=== PATIENT | female | born 1955 | race Caucasian/White ===

== ENCOUNTER 2016-07-12 11:16 | Inpatient (IN) | payer BC ==
--- NOTE | ~2016-07-12 | CN ---
Consultation Report [facility] [address] [place]. [address] NAME: SARAH WHITLEY : 55 STATUS : ADM IN PAT#: [id number] AGE: 61 ADM/REG DATE : 07/12/16 MR#: [id number] REPORT SERV DATE: 07/12/16 DICTATED BY: TRAVON DAUGHERTY DATE: 07/12/16 REPORT STATUS : Draft TRANSCRIBED BY: MODL DATE: 07/12/16 CONSULT NOTE DATE OF CONSULTATION: 07/12/2016 CHIEF COMPLAINT: Shortness of breath. HISTORY OF PRESENT ILLNESS: Ms Sarah Whitley is a pleasant 61-year-old white female with past medical history significant for moderate mitral regurg, obstructive sleep apnea with occasional CPAP compliance, and ongoing tobacco dependency, who presents to [facility] [place] with complaints of worsening shortness of breath. It should be noted that Ms Whitley has not been hospitalized recently. Ms Whitley has seen Dr. Keenan in the past for her presumed COPD. She has been placed on inhalers in the past, which she said she is compliant. The patient has smoked up until time of presentation. She states that she has smoked at least 1/2 of a pack of cigarettes a day for the last 30 years. She does have known obstructive sleep apnea. She is occasionally compliant with this therapy, more so recently in light of her recent worsening in her shortness of breath. She describes her exercise tolerance as being fairly limited, only being able to walk 20 or 30 yards before experiencing some degree of shortness of breath. The patient states that she has had worsening shortness of breath over the course of the last three to four weeks. She did see Dr. Prather for these concerns. She was also scheduled to reestablish in our Pulmonary Clinic with Dr. Keenan as well. Unfortunately, her breathing became so much of a concern that she eventually presented to our [facility]. Upon arrival, she was noted to have abnormal heart rate and was determined to be in atrial fibrillation with RVR. Given her shortness of breath as well as coughing, she was also treated for an exacerbation of COPD. She was eventually [facility] workup. She did undergo an echocardiogram which demonstrated a left ventricular ejection fraction of 40%. Severely dilated left atrium and moderately dilated right atrium, more appreciated as well. Mitral valve prolapse with at least moderate mitral regurgitation was noted as well. Of note, the patient has also had some worsening renal function with an elevated creatinine. She is currently under consideration for a transesophageal echocardiogram with possible cardioversion. Pulmonary has been consulted to address her symptoms consistent with an exacerbation of COPD. The patient's main pulmonary complaint is shortness of breath. This is worse on exertion and relieved by rest. She is coughing some, but is producing nonpurulent sputum. She does have some complaints of tightness and wheezing in her chest. She denies frequent exacerbations or recent pneumonias. The patient does have previous known mitral valve prolapse. She currently denies any murmurs or palpitations. She does confirm two-pillow orthopnea. Consultation Report [place] [id number] [facility] [place]. [address] NAME: SARAH WHITLEY : 55 STATUS : ADM IN [facility]#: [id number] AGE: 61 ADM/REG DATE : 07/12/16 MR#: [id number] REPORT SERV DATE: 07/12/16 DICTATED BY: TRAVON DAUGHERTY DATE: 07/12/16 REPORT STATUS : Draft TRANSCRIBED BY: VIET DATE: 07/12/16 In regard to constitutional symptoms, she currently denies fever, chills, nausea, vomiting, chest pain, abdominal pain, or edema. PAST MEDICAL HISTORY: 1. Mitral valve prolapse. 2. Clinical COPD. 3. Ongoing tobacco abuse. 4. Gastroesophageal reflux disease. 5. Atrial fibrillation. 6. Obstructive sleep apnea. PAST SURGICAL HISTORY: 1. Left oophorectomy. 2. Uvulectomy for treatment of her sleep apnea. 3. Bilateral tubal ligation. FAMILY HISTORY: The patient denies family history of lung disease. SOCIAL HISTORY: The patient states she is not . 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 She denies any known exposures to dust, silica, or asbestos. TOBACCO/ALCOHOL: As previously mentioned, the patient smokes approximately half pack a day for a period last 30 years. She denies any recent alcohol or illicit drug use. HOME MEDICATIONS: 1. Albuterol. 2. Diltiazem 30 mg. 3. Esomeprazole 40 mg. 4. Loratadine 10 mg. 5. Spiriva. ALLERGIES: THE PATIENT HAS KNOWN ALLERGY TO PENICILLIN. REVIEW OF SYSTEMS: A complete review of systems was performed with pertinent positives and negatives contained within the body of the HPI. PHYSICAL EXAMINATION: VITAL SIGNS: Blood pressure is 96/51, heart rate is 92, T-max is 98.6, respiratory rate is 20, SpO2 is 95% on 2 L supplemental oxygen. GENERAL: The patient is a pleasant, well-nourished/well-developed female who is not currently exhibiting any signs of acute distress. Skin: Skin with appropriate texture and turgor. No rashes, lesions, or ulcers. Nails are clear without cyanosis or clubbing. HEENT: Head: Skull is normocephalic/atraumatic. Facies symmetric. No masses or lesions. Consultation Report [address] [place]. [address] NAME: SARAH WHITLEY : 55 STATUS : ADM IN [facility]#: [id number] AGE: 61 ADM/REG DATE : 07/12/16 MR#: [id number] REPORT SERV DATE: 07/12/16 DICTATED BY: TRAVON DAUGHERTY DATE: 07/12/16 REPORT STATUS : Draft TRANSCRIBED BY: VIET DATE: 07/12/16 Eyes: Sclera anicteric, conjunctiva pink without exudates. Extra ocular movements intact. Pupils are equal, round, reactive to light. Ears: Auricles and tragus without pain to palpation. Hearing is grossly intact. Nose: Bilateral nasal patency. Sinuses without tenderness upon palpation. Throat: The patient is edentulous in the uppers. Mallampati class III to IV. Lips, oral mucosa, tongue, palate, and pharynx pink and moist without lesions. Uvula rises equally on phonation. Tongue midline without deviation. NECK: Neck supple. Trachea midline. No cervical lymphadenopathy appreciated. THORAX/LUNGS: Thorax is symmetric with equal chest rise. Breath sounds audible through entire field. No rales, wheezes, rhonchi. Crackles appreciated throughout. CARDIOVASCULAR: Regular rate and rhythm. No murmurs, rubs, or gallops. Anterior chest without thrills, heaves, or lifts. ABDOMEN: Soft. Non-distended, non-tender. Active bowel sounds in all four quadrants. No hepatosplenomegaly noted. PERIPHERAL VASCULAR: No edema. No varicosities, stasis changes, open sores, ulcerations, or phlebitis. 2+ pulses in radial and dorsalis pedis. MUSCULOSKELETAL: Full AROM and PROM in all joints. No evidence of erythema, deformity, or crepitus. NEUROLOGIC: CN II - XII grossly intact. Good muscle bulk and tone bilaterally. Strength 5/5 throughout. PSYCHIATRIC: Patient demonstrates good judgment and insight. Pt is A&O x 3. ACCESSORY DATA: Reveals a BUN of 61, creatinine 2.71. Troponins are negative. Chest x-ray reveals lower lobe ground-glass hazy opacities consistent with atelectasis or possible pneumonia. IMPRESSION: 1. Volume overload with pulmonary edema and bilateral pleural effusions. 2. Atrial fibrillation with rapid ventricular response. 3. Moderate mitral regurgitation. 4. Acute exacerbation of chronic obstructive pulmonary disease. 5. Acute kidney injury. 6. Obstructive sleep apnea plus or minus CPAP therapy. 7. Tobacco dependency - complicated. PLAN: 1. At this time, the Renal Service has been consulted to assist with her volume overload in the setting of acute kidney injury and hypotension. 2. In regard to the patient's atrial fibrillation and RVR, she is currently scheduled for a EMILIANO and cardioversion in the morning. We will attempt to optimize her prior to this procedure. 3. In regard to the patient's acute exacerbation of COPD, we will ensure that she is on steroids. We will place her on a full armamentarium of nebulized medications. She will need outpatient followup with pulmonary function testing. 4. In regard to the patient's acute kidney injury, again Nephrology Service is plan to see Consultation Report [address] [place]. [address] NAME: SARAH WHITLEY : 55 STATUS : ADM IN [facility]#: [id number] AGE: 61 ADM/REG DATE : 07/12/16 MR#: [id number] REPORT SERV DATE: 07/12/16 DICTATED BY: TRAVON DAUGHERTY DATE: 07/12/16 REPORT STATUS : Draft TRANSCRIBED BY: MODL DATE: 07/12/16 the patient today. 5. In regard to the patient's obstructive sleep apnea, she likely needs retitration study given the long period of time since her initial testing. 6. In regard to the patient's ongoing tobacco dependency, we have spent greater than 10 minutes counseling the patient in the benefits of smoking cessation. The aforementioned impression and plan has been discussed with Dr. Bonds, who will follow further recommendations. We thank you for this consult and look forward to participating in the care of Ms Whitley. GBS/MODL Travon Daugherty PA-C / [id number] CC: Debra Morin M.D.
--- NOTE | ~2016-07-12 | IDS ---
Interim Discharge Summary [facility] [address] [place]. [address] NAME: TING WHITLEY : 55 STATUS : ADM IN LOCATED WITHIN [facility]#: [id number] AGE: 61 ADM/REG DATE : 07/12/16 MR#: [id number] REPORT SERV DATE: 07/26/16 DICTATED BY: GARRET STANLEY DATE: 07/25/16 REPORT STATUS : Draft TRANSCRIBED BY: MODL DATE: 07/25/16 ADMISSION DATE: 07/12/2016 DISCHARGE DATE: WORKING DIAGNOSES: 1. Severe mitral valve regurgitation, status post minimally-invasive mitral valve repair. 2. Persistent paroxysmal atrial fibrillation, status post Maze and left atrial appendage ligation. 3. Postoperative hypotension. 4. Chronic systolic congestive heart failure, stable. 5. Chronic obstructive pulmonary disease. CONSULTS: 1. Cardiology. 2. Cardiothoracic Surgery. 3. Pulmonology. PROCEDURES: Minimally-invasive mitral valve repair along with Maze and GUILLAUME ligation for persistent paroxysmal atrial fibrillation, postop day #5 today. HOSPITAL COURSE: This is a 61-year-old lady who was initially admitted to the hospital with shortness of breath. Please note that the patient had a pretty lengthy hospital stay thus far and there is an interim discharge summary by Dr. Debra Morin on 07/18/2016. This interim discharge summary covers events happened since July 19, 2016, through July 25, 2016, today. By the time I assumed care of this patient, the patient was simply awaiting surgery for the mitral valve repair as well as maze procedure. The patient underwent above- mentioned procedure on 07/21/2016. The patient did well, however, developed postop hypotension. The patient was monitored in the CVICU until today, when she was just transferred out of the CVICU. The patient otherwise did not have any other complications, and the patient is right on the path for recovery. The patient will now be seen by Physical Therapy for discharge evaluation. Camelia/VIET Garret Stanley MD / [id number] CC: Garret Stanley MD
--- NOTE | ~2016-07-12 | OP ---
Record Of Operation [facility] [address] [place]. [address] NAME: TING WHITLEY : 55 STATUS : DIS IN PAT#: [id number] AGE: 61 ADM/REG DATE : 07/12/16 MR#: [id number] REPORT SERV DATE: 09/15/16 DICTATED BY: ADILSON MIGUEL DATE: 09/15/16 REPORT STATUS : Draft TRANSCRIBED BY: MODL DATE: 09/15/16 DATE OF PROCEDURE: E COMMERCE MERCHANT: Malcolm Miguel. ANESTHESIOLOGIST: Dr. Calos No. PREOPERATIVE DIAGNOSES: 1. Severe mitral regurgitation. 2. Partial flail posterior leaflet. 3. Patent foramen ovale. 4. Persistent atrial fibrillation. 5. Systolic congestive heart failure, acute on chronic. POSTOPERATIVE DIAGNOSES: 1. Severe mitral regurgitation. 2. Partial flail posterior leaflet. 3. Patent foramen ovale. 4. Persistent atrial fibrillation. 5. Systolic congestive heart failure, acute on chronic. OPERATION/PROCEDURE PERFORMED: 1. Right lateral mini thoracotomy. 2. Right femoral venous and arterial cannulation. 3. Extracorporeal circulation. 4. Extensive right and left cryo Maze. 5. Left atrial appendage clip 40 mm. 6. Complex mitral valve repair and triangular resection of P2 with 34 mm posterior annuloplasty band, Tania. 7. Transesophageal echo. COMPLICATIONS: None. POSTOPERATIVE CONDITION: To CVICU, weaned on 5 mcg per kilo per minute of dobutamine. INTRAOPERATIVE FINDINGS: Transesophageal echo showed pre ejection fraction of 40% with trace AI, trace TR, and severe MR with a partial flail of posterior leaflet. Post bypass showed trace AI and mild MR at P2-A2. INTRAOPERATIVE FINDINGS: Flail P2 with fibroelastic degeneration. There was thickened anterior and posterior leaflets. There was calcium in the anulus posteriorly. There was some calcium at the base of P2. The PFO was approximately 1 cm x 1 cm, was closed from the left atrial side using pledgeted 4-0 [place]iver[place]-Donnie sutures. The atrial clip was able to be applied to the transverse sinus using echocardiographic guidance. DETAILS OF MAZE PROCEDURE: All lesions were CryoMaze and this was an extensive left and Record Of Operation [facility] [address] [facility] [place]. [address] NAME: TING WHITLEY : [birth year] STATUS : DIS IN PAT#: [id number] AGE: 61 ADM/REG DATE : 07/12/16 MR#: [id number] REPORT SERV DATE: 09/15/16 DICTATED BY: ADILSON MIGUEL DATE: 09/15/16 REPORT STATUS : Draft TRANSCRIBED BY: VIET DATE: 09/15/16 right-sided CryoMaze, this was a Shields-Maze IV. The lesion set is as follows; 1. SVC to IVC lesion. 2. Two lesions to the right atrial appendage. 3. A 2 o'clock crossing lesion across the tricuspid annulus. 4. Pulmonary vein box lesion. 5. Mitral annular lesion crossing the pulmonary vein box to the mitral anulus. 6. Coronary sinus lesion. This was an epicardial lesion crossing the mitral valve anulus across the coronary sinus. 7. Left atrial appendage clip applied through the transverse sinus. INDICATIONS FOR PROCEDURE: Ms. Whitley is a 61-year-old female with history of severe mitral regurgitation, was admitted to the hospital with congestive heart failure. Cardiac catheterization revealed no significant coronary lesions and she was referred for mitral valve repair, possibly replace PFO closure and maze procedure. Risks, benefits, and alternatives were discussed with the patient including but not limited to, bleeding, infection, stroke, , heart attack, need for future operations. All questions were answered. Her STS risk were discussed with the patient with a mortality risk less than 6%. Total complication rate of less than 20%. Again, all questions were answered. DETAILS OF PROCEDURE: The patient was brought to the operating room, placed supine on the operating room table. After satisfactory induction of general endotracheal anesthesia via double-lumen ET tube, she was prepped and draped in the usual sterile fashion after placing a small bump under her right hemothorax. A percutaneous cannula had been placed by 15- Montenegrin percutaneous cannula, had been placed in the SVC via the jugular vein by the Anesthesia Service. She was prepped and draped in usual sterile fashion. A 6 cm incision was made in the inframammary crease, crossing the anterior axillary line in approximately the 5th intercostal space. Skin and subcutaneous tissues were divided down to the chest wall. The chest was entered in the fourth intercostal space. The wound protector was placed. A minimally invasive retractor was placed. The diaphragmatic retraction stitch was used to pull the diaphragm out of the way and attention was then turned to the right femoral region. A small incision was made just above the crease over the femoral artery and vein. Skin and subcutaneous tissues were divided down the inguinal ligament. The inguinal ligament was used to find the femoral sheath. The femoral sheath was entered. The artery and vein were circumferentially dissected out. Systemic heparinization was achieved. Pursestrings were placed on the artery and vein, and using modified Seldinger technique, arteries and veins were cannulated with echocardiographic guidance. Cardiopulmonary bypass was initiated after documentation of an adequate ACT. Pericardium was then opened. Pericardial stay sutures were placed. Antegrade root vent cardioplegia tack was placed and cross-clamp was brought in transthoracic and the aorta was cross clamped. The heart was arrested with cold antegrade cardioplegia. The left atrial appendage clip was placed after visualizing the left atrial appendage through the transverse sinus. A 40 mm clip was able to be placed over the appendage and then the appendage clip was applied. Sondergaard's groove was developed. The left atriotomy was performed, enlarged with scissors. A retractor was placed and the PFO was visualized. The PFO was closed using pledgeted 4-0 Niverville-Donnie sutures and the left atrial appendage clip and the opening of the left atrial appendage was investigated, was felt to be closed. The Maze lesions were then performed as mentioned in the findings. All lesions were performed for 2 minutes at minus 60 degrees. Record Of Operation [facility] [address] [facility] [place]. [address] NAME: TING WHITLEY : 55 STATUS : DIS IN PAT#: [id number] AGE: 61 ADM/REG DATE : 07/12/16 MR#: [id number] REPORT SERV DATE: 09/15/16 DICTATED BY: ADILSON MIGUEL DATE: 09/15/16 REPORT STATUS : Draft TRANSCRIBED BY: MODL DATE: 09/15/16 Once this was done, attention was turned to the mitral valve. There was a flail segment of P2 and the valve was sized to a 34 mm band. Posterior annuloplasty sutures were placed and then a triangular resection was performed. The triangular resection was performed between good cords. The flail segment was excised. The resection was closed using 5-0 Niverville-Donnie sutures. Annuloplasty sutures were placed through the sewing ring of the annuloplasty band. The annuloplasty band was lowered into position. The valve was interrogated, felt to be minimal leakage, and left atrium was closed. A Cordon was placed across the valve as a vent and left atrium was closed in two layers. The ventricular pacing wires were placed during maneuvers were performed and the cross-clamp was removed. The patient returned to normal sinus rhythm, was able to be weaned from cardiopulmonary bypass without incident, on 5 mcg per kilo per minute of dobutamine. The transesophageal echo showed no residual PFO with trace AI and extremely mild central leak. The protamine was administered. Hemostasis was obtained. The patient was decannulated. Pursestring sutures were tied down in the femoral vein. Femoral artery was repaired using interrupted 6-0 Prolene. The Tisseel was applied and the femoral incision was closed using 0 Vicryl, 2-0 Vicryl, 4-0 Monocryl. Dry sterile dressings were placed on this. A 24-Montenegrin Yordan was placed in the right pleural space. A 24-Montenegrin Yordan was placed in the pericardial space. Pericardium was loosely closed using interrupted 2-0 Vicryl. Pacing wires were exteriorized and the diaphragmatic suture was removed. The incision was then closed after hemostasis was obtained. The thoracotomy incision was closed using #2 Vicryl. The latissimus layer was closed using running #1 StrataFix. Subcutaneous tissues closed using running #1 StrataFix. The skin was closed using 2-0 Quill. All stab incisions were closed with glue, cross-clamp, and cardiotomy sucker. Incisions which were slightly larger were closed using interrupted 4-0 Vicryl and glue. Dry sterile dressing was applied. She was transferred to the CVICU in critical, stable condition. C/MODL Adilson Miguel MD / [id number] CC: MD Boby Acevedo M.D.
--- NOTE | ~2016-07-12 | TEE ---
Transesophageal Echocardiogram [facility] [address] [facility] [place]. [address] NAME: TING WHITLEY : 55 STATUS : ADM IN [facility]#: [id number] AGE: 61 ADM/REG DATE : 07/12/16 MR#: [id number] REPORT SERV DATE: 07/13/16 DICTATED BY: DATE: REPORT STATUS : Draft TRANSCRIBED BY: MODL DATE: 07/13/16 CHIEF COMPLAINT/REASON FOR STUDY: Mitral valve regurgitation and atrial fibrillation. PROCEDURE: After obtaining written informed consent, which is documented on the medical record, Anesthesia administered IV propofol to achieve adequate conscious sedation. The transesophageal probe was easily inserted without complications. Saline 2D echocardiographic images were obtained including color and spectral doppler assessment. CHAMBERS: 1. The left ventricle appeared mildly dilated with normal wall thickness. The left ventricular systolic function was moderately depressed with a calculated ejection fraction of 40% via Almanza method. 2. The right ventricle appeared mildly dilated with mildly decreased systolic function. 3. The left atrium was markedly dilated in size. 4. The right atrium was dilated in size. 5. The left atrial appendage was interrogated at multiple levels and depths. There was no evidence of left atrial appendage thrombus. Doppler velocities within the left atrial appendage measured 20 cm/sec. 6. The mitral valve was abnormally thickened, consistent with myxomatous degeneration with a severe mitral valve prolapse of P1 and P2 leaflets with associated torn chordae tendineae. There is severe eccentric anteriorly directed mitral regurgitation, Ifeoma classification II, seen with color and Doppler assessment. 7. The tricuspid valve was normal with preserved leaflet motion without significant tricuspid valvular regurgitation seen via color Doppler assessment. 8. The aortic valve was normal and trileaflet without evidence of significant stenosis or regurgitation seen with color Doppler assessment. 9. The pulmonary valve was well visualized and normal. There was no evidence of significant pulmonary valvular regurgitation. 10.The aorta was normal with mild atherosclerotic plaque visualized. 11.There was no significant pericardial effusion. 12.There was a large left-sided pleural effusion visualized. 13.The interatrial septum was aneurysmal and deviated towards the right. There was color flow evidence of left to right shunt probably via patent foramen ovale. However, this was attempted to be confirmed with saline and observation of right to left color flow could not be visualized. 14.The right and left upper pulmonary veins were interrogated, and there was evidence of pulmonary vein flow reversal. IMPRESSION: 1. Moderately decreased left ventricular systolic function with calculated ejection fraction of 40%. 2. Severe mitral valve prolapse with myxomatous mitral valve leaflets and associated torn chords and severe eccentric mitral valvular regurgitation, Ifeoma classification II. 3. 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 4. Large pleural effusion. Transesophageal Echocardiogram [address] [address] NAME: TING WHITLEY : 55 STATUS : ADM IN [facility]#: [id number] AGE: 61 ADM/REG DATE : 07/12/16 MR#: [id number] REPORT SERV DATE: 07/13/16 DICTATED BY: DATE: REPORT STATUS : Draft TRANSCRIBED BY: VIET DATE: 07/13/16 [facility]/VIET Suyapa Cardoso M.D. / [id number] CC: Debra Morin M.D.
--- NOTE | ~2016-07-12 | PUL ---
[address] [address] NAME: TING WHITLEY : 55 STATUS : ADM IN [facility]#: [id number] AGE: 61 ADM/REG DATE : 07/12/16 MR#: [id number] REPORT SERV DATE: 07/25/16 DICTATED BY: MARYELLEN JUSTICE DATE: 07/24/16 REPORT STATUS : Draft TRANSCRIBED BY: MODL DATE: 07/24/16 PULMONARY FUNCTION TEST PROCEDURE PERFORMED: Overnight oximetry on supplemental oxygen. The patient had slightly over 5 hours of recorded time on 2 L/minute and had no significant oxygen desaturation. IMPRESSION: Successful correction of nocturnal hypoxemia with supplemental oxygen. HOLLIE/VIET Maryellen Justice M.D. / [id number] CC: MD JENA Pedersen HAK SOK
--- NOTE | ~2016-07-12 | CN ---
Consultation Report [facility] [address] [place]. [address] NAME: TING WHITLEY : 55 STATUS : ADM IN [facility]#: [id number] AGE: 61 ADM/REG DATE : 07/12/16 MR#: [id number] REPORT SERV DATE: 07/13/16 DICTATED BY: DATE: REPORT STATUS : Draft TRANSCRIBED BY: MODL DATE: 07/12/16 DATE OF CONSULTATION: 07/12/2016 REASON FOR CONSULTATION: Acute kidney injury. HISTORY OF PRESENT ILLNESS: Ms Whitley is a 61-year-old white female who denies any history of kidney disease in the past. She went to a [facility] with shortness of breath. Since being there, she has been diuresed. She was found to have atrial fibrillation with RVR and placed on Cardizem drip, amiodarone. Creatinine has gone from 0.8 to 1.96 to 2.75. Today, we have been asked to see her in consultation. She has been transferred here to [facility] for EMILIANO cardioversion and heart catheterization. She stated her shortness of breath had been increasing for one month with occasional chest pressure. She has been urinating some. She has been on Lasix since her presentation. Chest x-ray shows pleural effusions and some pulmonary edema. Unfortunately, her blood pressures are in the 80s to 90s at times. PAST MEDICAL HISTORY: COPD, reflux, atrial fibrillation, obstructive sleep apnea. SOCIAL HISTORY: Lives with daughter. Smokes. No alcohol or illicit drug use. FAMILY MEDICAL HISTORY: No kidney disease. ALLERGIES: TO PENICILLIN AND CODEINE. MEDICATIONS: Amiodarone, aspirin, doxycycline, fluticasone, loratadine, Solu-Medrol, Protonix, and tiotropium. REVIEW OF SYSTEMS: 12-point review of systems obtained and negative with the exception of that in HPI. PHYSICAL EXAMINATION: VITAL SIGNS: Temp 97.5, blood pressure 96/51, pulse 92, respiratory rate 20, O2 saturation 95% on 3 L. GENERAL: This is an ill-appearing white female, who is awake, alert, and oriented, answers questions appropriately. HEENT: Normocephalic and atraumatic. Conjunctivae clear. Sclerae anicteric. Pupils are equal and round. Oral mucosa is moist. NECK: Supple, thick. I do not see neck vein distention. RESPIRATIONS: Even, and she has rhonchi bilaterally with decreased bilateral bases, right greater than left. HEART: Rate is irregularly irregular. ABDOMEN: Obese, soft, nontender. No CVA tenderness. BACK: Within normal limits. EXTREMITIES: No significant edema, cyanosis, or clubbing. SKIN: Warm, dry, and intact. No unusual rash or skin lesions. Consultation Report [place] [address] [facility] [address] NAME: TING WHITLEY : 55 STATUS : ADM IN [facility]#: [id number] AGE: 61 ADM/REG DATE : 07/12/16 MR#: [id number] REPORT SERV DATE: 07/13/16 DICTATED BY: DATE: REPORT STATUS : Draft TRANSCRIBED BY: VIET DATE: 07/12/16 NEURO: No focal deficits. Mood and affect, pleasant appropriate. PERTINENT LABS AND X-RAYS: Chest x-ray with edema and pleural effusion bilaterally. Sodium 132, potassium 5.2, chloride 94, CO2 of 22, BUN of 61, creatinine of 2.7, magnesium of 2.2, albumin of 3.4. Troponin 0.02. LFTs are unremarkable. WBCs 10, H and H 13 and 42, platelets 351,000. IMPRESSION: 1. Acute kidney injury. 2. Atrial fibrillation. 3. Congestive heart failure. 4. Hypotension. 5. Chronic obstructive pulmonary disease. 6. Obstructive sleep apnea. PLAN: Acute kidney injury in the setting of a normal baseline creatinine. It has gone from 0.8 to 2.75, suspect this is an acute cardiorenal syndrome in the setting of her atrial fibrillation with RVR and hypotension with prerenal component with given blood pressures. We would like to diurese, but blood pressure is in the 80s to 90s today. We will follow I's and O's and labs. Check urine studies. for some blood pressure support, so we can diurese. Plan is for EMILIANO with cardioversion tomorrow and we will follow along with you. Thank you for the consultation. ALLIE OLEKSANDR Valles / [id number] CC: Debra Morin M.D.
--- NOTE | ~2016-07-12 | CN ---
Consultation Report [facility] [address] [place]. [address] NAME: TING WHITLEY : 55 STATUS : ADM IN PAT#: [id number] AGE: 61 ADM/REG DATE : 07/12/16 MR#: [id number] REPORT SERV DATE: 07/14/16 DICTATED BY: FRANCISCO JAVIER CHIANG DATE: 07/13/16 REPORT STATUS : Draft TRANSCRIBED BY: MODL DATE: 07/13/16 CONSULTATION DATE OF CONSULTATION: 07/13/2016 REASONS FOR CONSULTATION: Mitral valve prolapse and regurgitation. HISTORY OF PRESENT ILLNESS: This is a 61-year-old female with history of COPD, chronic atrial fibrillation, obstructive sleep apnea, and ongoing tobacco abuse. She has had progressive shortness of breath over the past month, and presented to the emergency room at [facility] on 07/10/2016. In the emergency room, she was found it to be in atrial fibrillation with rapid ventricular response. Her laboratory data was unremarkable with normal troponin. She was admitted with COPD exacerbation and atrial fibrillation RVR. She was eventually transferred here and underwent echocardiogram on 07/12/2016, which showed left ventricular ejection fraction of 40%, which is down from 60% in May 2016. She also had a severely dilated left atrium with a moderately dilated right atrium and mitral valve prolapse with at least moderate mitral valve regurgitation. The patient was scheduled to undergo EMILIANO and arteriogram today. Arteriogram was held due to kidney function. She is also scheduled to undergo cardioversion for the atrial fibrillation, but this was held due to the fact that she is going to need mitral valve repair versus mitral valve replacement with maze procedure. CT Surgery was consulted for evaluation of the surgery. Currently, the patient is recovering after her transesophageal echocardiogram with no complaints of chest pain or shortness of breath. Her family is at bedside including her daughter and sister. PAST MEDICAL HISTORY: GERD; COPD; atrial fibrillation, not on chronic anticoagulation; and obstructive sleep apnea with noncompliance. PAST SURGICAL HISTORY: Uvulectomy, left oophorectomy, and bilateral tubal ligation. SOCIAL HISTORY: She lives with her daughter. She smoked a half pack per day for over 35 years. Denies any history of alcohol abuse or use of illicit drugs. FAMILY HISTORY: Positive family history of coronary artery disease. She reports two siblings with mitral valve disease. ALLERGIES: SHE IS ALLERGIC TO PENICILLIN AND CODEINE. HOME MEDICATIONS: Albuterol 1 puff inhaled as needed, BC powder 1 packet as needed, Cardizem 15 mg p.o. three times a day, Nexium 40 mg p.o. every morning, Flonase 2 sprays nasally daily, Claritin 10 mg p.o. daily, and Spiriva inhaler every morning. REVIEW OF SYSTEMS: A 10-point review of systems was obtained, and is negative other than HPI. Consultation Report [address] [place]. [address] NAME: TING WHITLEY : 55 STATUS : ADM IN PAT#: [id number] AGE: 61 ADM/REG DATE : 07/12/16 MR#: [id number] REPORT SERV DATE: 07/14/16 DICTATED BY: FRANCISCO JAVIER CHIANG DATE: 07/13/16 REPORT STATUS : Draft TRANSCRIBED BY: VIET DATE: 07/13/16 PHYSICAL EXAMINATION: VITAL SIGNS: From today, temperature 97.7, heart rate 113, atrial fibrillation on telemetry. Blood pressure 99/77, respiratory rate 14, and O2 saturation 93% on 3 L. GENERAL: Ill-appearing female, in no acute distress. PSYCH: Flat affect. Still recovering from sedation. Talkative. NEUROLOGIC: Alert and oriented x3. Pupils are equal, round, and reactive to light and accommodation. She exhibits equal strength in bilateral upper extremities and bilateral lower extremities. HEENT: Head is normocephalic and atraumatic. Sclerae clear. Nose midline with no abnormality. Teeth; she has had the majority of her teeth extracted. She has permanent teeth that appeared to be healthy along the front lower portion of her jaw. NECK: Supple with no thyromegaly or lymphadenopathy. LUNGS: Clear to auscultation bilaterally with normal effort. CARDIAC: S1, S2. She has a systolic murmur. No gallops or rubs. ABDOMEN: Soft, flat, and nontender with active bowel sounds. EXTREMITIES: Free of cyanosis, clubbing, or edema. LABORATORY DATA: White blood cell count of 4.9, hemoglobin 12.7, hematocrit 39.7, and platelets 224. Sodium 133, potassium 4.5, chloride 97, bicarbonate 25, BUN 63, creatinine 1.87, and glucose 203. ASSESSMENT AND PLAN: This is a 61-year-old female with a history of chronic obstructive pulmonary disease and atrial fibrillation, and ongoing tobacco abuse. She has had worsening shortness of breath over the past month, and was found to have mitral valve prolapse with at least moderate mitral regurgitation per transesophageal echocardiogram. She needs mitral valve repair versus replacement plus maze procedure, we are currently awaiting arteriogram to see if she also needs coronary artery bypass grafting. I have calculated her STS risk stratification for the mitral valve replacement alone which include an overall mortality of 2.8%, and morbidity mortality of 27%. I discussed these findings in relation to mitral valve replacement surgery as well as the need for mitral valve repair versus replacement. The patient is agreeable to proceed. We will need to wait for the coronary arteriogram which will be performed tomorrow morning before planning any further intervention. I will get a CT scan of the chest, noncontrast for now due to the history of chronic obstructive pulmonary disease and heavy tobacco abuse. We will see her again tomorrow and review cath films to determine the patient's surgical needs. Thank you for the consultation. Please let us know if we could be of further assistance. PRAFUL/VIET Francisco Javier Chiang NP Consultation Report [address] [address] NAME: TING WHITLEY : 55 STATUS : ADM IN [facility]#: [id number] AGE: 61 ADM/REG DATE : 07/12/16 MR#: [id number] REPORT SERV DATE: 07/14/16 DICTATED BY: FRANCISCO JAVIER CHIANG DATE: 07/13/16 REPORT STATUS : Draft TRANSCRIBED BY: VIET DATE: 07/13/16 / [id number] CC: Debra Morin M.D.
--- NOTE | ~2016-07-12 | IDS ---
Interim Discharge Summary [facility] [address] [place]. [address] NAME: TING WHITLEY : 55 STATUS : ADM IN [facility]#: [id number] AGE: 61 ADM/REG DATE : 07/12/16 MR#: [id number] REPORT SERV DATE: 07/18/16 DICTATED BY: TAYE OMALLEY DATE: 07/18/16 REPORT STATUS : Draft TRANSCRIBED BY: MODL DATE: 07/18/16 ADMISSION DATE: 07/12/2016 DISCHARGE DATE: This is interim discharge summary for days of service provided from 07/13/2016 to 07/18/2016. The patient was transferred from [facility] from the service of Dr. Ramsay on 07/13/2016 to [facility] on 07/13/2016. CURRENT MEDICAL PROBLEMS: The patient's current medical problems: 1. Severe mitral valve regurgitation. 2. 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 3. Severe mitral regurgitation. Needs surgery. 4. Large left-sided pleural effusion. 5. Atrial fibrillation, initially with rapid ventricular response, now rate controlled. 6. Congestive heart failure, chronic systolic dysfunction with ejection fraction of 40%. 7. Chronic obstructive pulmonary disease exacerbation, improved. History of long-term smoking with severe tobacco abuse. 8. Status post coronary arteriography done on 07/13/2016, no significant blockages. 9. Dyspnea, multifactorial secondary to severe mitral regurgitation and pulmonary edema on admission; atrial fibrillation; severe chronic obstructive pulmonary disease, advanced; and congestive heart failure. 10.Constipation, improved. 11.Acute kidney injury, present on admission, resolved. 12.Pulmonary nodule on the CT of the chest, to be followed up with the management psychologist outpatient. CONSULTANTS ON THE CASE: Comb Fixer Dr. Bonds. Supervisor Stage Carpentry Dr. White. Cardiothoracic nurse practitioner of Dr. Tamayo' Dr. Nadeem Perez for mitral valve surgery. Nephrologists, Dr. Frank Oseguera for acute kidney. IMAGING STUDIES: Transesophageal echocardiogram done on 07/13/2016 showed moderately decreased left ventricular systolic function with ejection fraction of 40%. Severe mitral valve prolapse with myxomatous mitral valve leaflets, and with severe eccentric mitral valvular regurgitation. 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 Coronary arteriography which was done on 07/13/2016 did not show any significant coronary artery disease. CT of the chest without contrast done on 07/13/2016 showed cardiomegaly with increased central venous pressure, bilateral pleural effusion, and bibasilar atelectasis. No segmental pneumonia, left upper lobe pulmonary nodule. Surveillance of this following treatment for congestive heart failure is suggested. HISTORY OF PRESENT ILLNESS: Per dictation of Dr. Matthew when the patient was admitted to Interim Discharge Summary [address] [address] NAME: TING WH[place]LEY : 55 STATUS : ADM IN [facility]#: [id number] AGE: 61 ADM/REG DATE : 07/12/16 MR#: [id number] REPORT SERV DATE: 07/18/16 DICTATED BY: TAYE OMALLEY DATE: 07/18/16 REPORT STATUS : Draft TRANSCRIBED BY: VIET DATE: 07/18/16 [facility]. HOSPITAL COURSE: Briefly, this patient was transferred to the [facility] in July. The patient was evaluated by bilingual executive assistant and Cardiothoracic Surgery, and she needs to have surgery for her mitral valve fixation as well as management psychologist was following this patient for optimization of lung status. Her kidney function has improved. For her pulmonary nodule, she has to follow up with management psychologist Dr. Bonds as outpatient for surveillance. This was discussed with the patient. For atrial fibrillation with rapid ventricular response, she was on a drip of Cardizem. Currently, it is discontinued, and she is not anymore on amiodarone drip. My partner will see this patient starting tomorrow morning, Dr. Soler. /VIET Taye Omalley M.D. / [id number] CC: Rayna Thornton MD
--- NOTE | ~2016-07-12 | DS ---
Discharge Summary [facility] [address] [place]. [address] NAME: TING WHITLEY : 55 STATUS : DIS IN PAT#: [id number] AGE: 61 ADM/REG DATE : 07/12/16 MR#: [id number] REPORT SERV DATE: 07/28/16 DICTATED BY: JR. LANTIGUA WILLIAM JOHN DATE: 07/27/16 REPORT STATUS : Draft TRANSCRIBED BY: MODKandis DATE: 07/27/16 ADMISSION DATE: 07/12/2016 DISCHARGE DATE: 07/27/2016 INTERNAL MEDICINE DISCHARGE SUMMARY DISCHARGE DIAGNOSES: Include, 1. Severe mitral regurgitation, status post minimally invasive mitral valve repair. 2. Persistent paroxysmal atrial fibrillation, status post maze with left atrial appendage ligation. 3. Postop hypotension which has resolved. 4. Chronic diastolic heart failure. 5. Chronic obstructive pulmonary disease. 6. Thrombocytopenia. 7. Obesity with a body mass index of 37.3. OPERATIONS PROCEDURES AND TREATMENTS: Include, 1. Transesophageal echocardiogram done 07/13/2016, which showed moderately decreased left ventricular systolic function, calculated ejection fraction of 40%. 2. Severe mitral valve prolapse with myxomatous mitral valve leaflets and associated torn cords and eccentric mitral valvular regurgitation, Ifeoma classification 2. 3. 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 4. Large pleural effusion. 5. Overnight oximetry. 6. CT of the chest done 07/13/2016 which showed cardiomegaly with increased central venous pressure, bilateral pleural effusions, bibasilar atelectasis. 7. Carotid flow study done 07/13/2016 which showed mild heterogeneous atherosclerotic plaque and left internal carotid with minimal stenosis. There is no significant plaque on the right. Vertebrals showed antegrade flow bilaterally. 8. Renal ultrasound done 07/13/2016 was normal. 9. Multiple chest x-rays for chest tube monitoring. Most recent chest x-ray was 07/27/2016 which showed interval removal of right chest tube with no pneumothorax. 10.Transthoracic echocardiogram done 07/12/2016 showed left ventricular contractility, mildly impaired at 40% with severely dilated left atrium, moderately dilated right atrium, mitral valve prolapse with at least moderate mitral regurgitation. 11.Right lateral minithoracotomy with right femoral venous and arterial cannulation, extracorporeal circulation, maze procedure, left atrial appendage ligation mitral valve repair done 07/20/[address] Tamayo. CONSULTING PHYSICIANS: Include, 1. Dr. Tamayo. 2. Dr. Potts of Pulmonary Medicine. 3. Dr. Oseguera of Nephrology. 4. Dr. Prather of Cardiology. DISCHARGE MEDICATIONS: Include, Discharge Summary [facility] [address] [place]. [address] NAME: TING WHITLEY : 55 STATUS : DIS IN PAT#: [id number] AGE: 61 ADM/REG DATE : 07/12/16 MR#: [id number] REPORT SERV DATE: 07/28/16 DICTATED BY: JR. LANTIGUA WILLIAM JOHN DATE: 07/27/16 REPORT STATUS : Draft TRANSCRIBED BY: VIET DATE: 07/27/16 1. Vitamin C 1000 mg orally twice a day. 2. Aspirin 81 mg orally daily. 3. Lipitor 40 mg orally daily. 4. Amiodarone 200 mg orally twice a day. 5. Lovenox 90 mg subcu every 12 hours for five days or until INR greater than 3. 6. Fluticasone nasal spray, two sprays in each nostril daily. 7. Claritin 10 mg orally daily. 8. Nexium 20 mg orally daily. 9. MiraLAX one packet daily. 10.Lyrica 50 mg every eight hours dispensing two-week supply. 11.Spiriva HandiHaler daily. 12.Coumadin 4 mg orally daily. 13.Zinc 220 mg orally daily. 14.DuoNeb nebulized every six hours while awake. 15.Dulera 200/5 two puffs twice a day. 16.Prednisone 10 mg orally twice a day for four days and 7.5 mg orally twice a day for four days, then 5 mg orally twice a day for four days and 5 mg daily for four days. 17.Leisenring 5/325 one to two tablets every six hours as needed. HOSPITAL COURSE: The patient is a 61-year-old female, initially admitted by Dr. Matthew of [facility] for shortness of breath. The patient was admitted with atrial fibrillation, rapid ventricular response, and COPD exacerbation. She was given IV diltiazem drip, Solu-Medrol. BNP was in the mid 500s on admission, creatinine had worsened from 0.9 to 2.75. The patient was seen by Dr. Gaona of Cardiology and recommendation was for transfer to the [facility]. The patient was transferred to the [facility] on 07/12/2016. The patient underwent a EMILIANO which is detailed above showing depressed systolic function as well as severely dilated left atrium and mitral valve regurgitation. She was subsequently seen by Thoracic Surgery in evaluation for a maze procedure, left atrial appendage ligation, and mitral valve repair ensued. In the interim, the patient was seen by Nephrology and her renal function was optimized. Her creatinine had improved to 1 by 07/15/2016. The patient eventually went to surgery on 07/20/2016 and had hypotension following surgery and was transferred to the CV ICU. The patient gradually recovered and was transferred to the floor on 07/23/2016. She underwent a nocturnal desaturation study which showed greater than 5 hours of desaturation to less than 88% qualifying her for nocturnal home oxygen. The patient was started on Coumadin and Lovenox. She will be discharged to home today 07/27/2016 with bedside commode and a wheeled walker. She was dispensed Lovenox 90 mg subcu b.i.d. five-day supply to bridge until INR is greater than 2. We will schedule an INR check on Monday. The patient will follow up with Dr. Prather and Dr. Linares. Highlights of exam at discharge, her right groin wound is well healed. Her right thoracotomy wound is dressed. Her BUN and creatinine are 15 and 0.4. She will have an exertional desaturation studying that will be set up for oxygen if she qualifies. FOLLOWUP ISSUES: 1. Follow up with Dr. Prather in two to four weeks. 2. Follow up with Dr. Linares in one week with CBC, BMP, and INR. 3. INR check on 07/29/2016. 4. For discharge exam and laboratory, please see the daily progress note. Discharge Summary [address] [address] NAME: TING [place]LEY : 55 STATUS : DIS IN PAT#: [id number] AGE: 61 ADM/REG DATE : 07/12/16 MR#: [id number] REPORT SERV DATE: 07/28/16 DICTATED BY: JR. LANTIGUA WILLIAM JOHN DATE: 07/27/16 REPORT STATUS : Draft TRANSCRIBED BY: VIET DATE: 07/27/16 DISCHARGE DIET: Low sodium, cardiac diet. ACTIVITY: As tolerated. This discharge took 45 minutes for the patient encounter, coordination of care, and documentation. YODIT/VIET Dajuan Lantigua Jr, MD / [id number] CC: Dajuan Lantigua Jr, MD SEO, [facility]
[~2016-07-12 11:16] MED LIST: ALBUTEROL5 INH; BC HEADACHE PO; CARD30 PO; CLARIT10 PO; FLONASE NAS; MOBIC7.5 PO; MUCINEX; MULTIPLE VIT PO; NEXIUM40 PO; P10 PO; PROVHFA INH; SPIRIVA INH; ULTRAM50 PO; VIT B 12; VITC500 PO; ZYRTEC ALLGY10 MG PO
[2016-07-12] MEDS ORDERED: B-C POWDER PO (14:23)
[2016-07-12] MEDS ORDERED: NEXIUM20 M1 PO (14:23)
[2016-07-12] MEDS ORDERED: ALBUTEROL5 PO (14:24)
[2016-07-12] MEDS ORDERED: CLARIT10 PO (14:24)
[2016-07-13 02:09] LABS: ASCORBIC ACID (UR NOT ORDER) NEG (NEG); BILIRUBIN, URINE NEGATIVE (NEG); KETONE, URINE NEGATIVE (NEG); LEUKOCYTE ESTERASE(NOT OR NEG (NEG); WBC (NOT ORDERED) (RFLEX) 1 (0-5)
[2016-07-13 05:59] LABS: BASOPHILS 0 %; EOSINOPHILS 0 %; HEMATOCRIT 39.7 % (36.0-48.0); HEMOGLOBIN 12.7 g/dL (12.0-16.0); IMMATURE GRANULOCYTES 0.2 %; IMMATURE GRANULOCYTES ABSOLUTE 0.01 10/3/uL (0.0-0.11); LYMPHOCYTES 3.5 %; LYMPHOCYTES ABSOLUTE 0.17 10/3/uL (0.67-4.30); MANUAL DIFF NO %; MEAN CORPUSCULAR HEMOGLOB 27.3 pg (26.0-34.0); MEAN CORPUSCULAR VOLUME 85.4 fL (80-100); MEAN PLATELET VOLUME 10.3 fL (9.2-13.0); MONOCYTES 2.2 %; MONOCYTES ABSOLUTE 0.11 10/3/uL (0.21-1.20); NEUTROPHILS 94.1 %; PLATELET COUNT 224 10/3/uL (150-400); RBC DISTRIBUTION WIDTH 14.2 % (12.0-16.0); RED CELL COUNT 4.65 10/6/uL (4.0-5.6); WHITE BLOOD CELLS 4.9 10/3/uL (4.5-10.5)
[2016-07-13 06:03] LABS: ALBUMIN 3.4 G/DL (3.5-5.0); BUN (BLOOD UREA NITROGEN) 63 MG/DL (6-23); CALCIUM, SERUM 8.6 MG/DL (8.5-10.4); CHLORIDE, SERUM 97 MMOL/L (96-112); CO2 (CARBON DIOXIDE) 25 MMOL/L (24-34); GLUCOSE, SERUM 203 MG/DL (60-99); POTASSIUM, SERUM 4.5 MMOL/L (3.5-5.3); SODIUM, SERUM 133 MMOL/L (135-148)
[2016-07-13 06:04] LABS: CREATININE 1.87 MG/DL (0.55-1.02); GFR AFRICAN AMERICAN 33 ML/MIN (>=60); GFR NON AFRICAN AMERICAN 29 ML/MIN (>=60); PHOSPHORUS, SERUM 4.9 MG/DL (2.5-4.5)
[2016-07-14 01:54] LABS: BASOPHILS 0 %; EOSINOPHILS 0 %; HEMATOCRIT 40.9 % (36.0-48.0); HEMOGLOBIN 13.1 g/dL (12.0-16.0); IMMATURE GRANULOCYTES 0.3 %; IMMATURE GRANULOCYTES ABSOLUTE 0.02 10/3/uL (0.0-0.11); LYMPHOCYTES ABSOLUTE 0.18 10/3/uL (0.67-4.30); MEAN CORPUSCULAR HEMOGLOB 27.2 pg (26.0-34.0); MEAN CORPUSCULAR VOLUME 84.9 fL (80-100); MEAN PLATELET VOLUME 10.2 fL (9.2-13.0); MONOCYTES 1.2 %; MONOCYTES ABSOLUTE 0.07 10/3/uL (0.21-1.20); NEUTROPHILS 95.5 %; NEUTROPHILS ABSOLUTE 5.75 10/3/uL (2.02-8.40); PLATELET COUNT 220 10/3/uL (150-400); RBC DISTRIBUTION WIDTH 14.3 % (12.0-16.0); RED CELL COUNT 4.82 10/6/uL (4.0-5.6)
[2016-07-14 01:57] LABS: MANUAL DIFF NO %
[2016-07-14 02:15] LABS: ALBUMIN 3.7 G/DL (3.5-5.0); CALCIUM, SERUM 8.7 MG/DL (8.5-10.4); CHLORIDE, SERUM 95 MMOL/L (96-112); CHOL/HDL RATIO(NOT ORDER) 3.8 (0-5); CHOLESTEROL 188 MG/DL (< 200); GFR AFRICAN AMERICAN 40 ML/MIN (>=60); GFR NON AFRICAN AMERICAN 34 ML/MIN (>=60); GLUCOSE, SERUM 221 MG/DL (60-99); HDL CHOLESTEROL 49 MG/DL (> 49); LDL CHOLESTEROL 111 MG/DL (< 130); NON-HDL CHOLESTEROL 139 MG/DL (< 160); PHOSPHORUS, SERUM 4.5 MG/DL (2.5-4.5); SODIUM, SERUM 138 MMOL/L (135-148); TRIGLYCERIDE 143 MG/DL (< 150)
[2016-07-14 02:16] LABS: CO2 (CARBON DIOXIDE) 31 MMOL/L (24-34)
[2016-07-14 02:17] LABS: BUN (BLOOD UREA NITROGEN) 56 MG/DL (6-23)
[2016-07-15 05:57] LABS: BASOPHILS 0 %; EOSINOPHILS 0 %; HEMATOCRIT 38.5 % (36.0-48.0); HEMOGLOBIN 12.1 g/dL (12.0-16.0); IMMATURE GRANULOCYTES 0.1 %; IMMATURE GRANULOCYTES ABSOLUTE 0.01 10/3/uL (0.0-0.11); LYMPHOCYTES 5.5 %; LYMPHOCYTES ABSOLUTE 0.37 10/3/uL (0.67-4.30); MEAN CORPUS HGB CONC 31.4 g/dL (32.0-36.0); MEAN CORPUSCULAR VOLUME 85.9 fL (80-100); MEAN PLATELET VOLUME 9.6 fL (9.2-13.0); NEUTROPHILS 91.4 %; NEUTROPHILS ABSOLUTE 6.13 10/3/uL (2.02-8.40); PLATELET COUNT 195 10/3/uL (150-400); RBC DISTRIBUTION WIDTH 14.4 % (12.0-16.0); RED CELL COUNT 4.48 10/6/uL (4.0-5.6); WHITE BLOOD CELLS 6.7 10/3/uL (4.5-10.5)
[2016-07-15 05:58] LABS: MANUAL DIFF NO %
[2016-07-15 06:05] LABS: CALCIUM, SERUM 8.3 MG/DL (8.5-10.4); CHLORIDE, SERUM 95 MMOL/L (96-112); SODIUM, SERUM 137 MMOL/L (135-148)
[2016-07-15 06:07] LABS: BUN (BLOOD UREA NITROGEN) 40 MG/DL (6-23); CO2 (CARBON DIOXIDE) 38 MMOL/L (24-34); CREATININE 0.99 MG/DL (0.55-1.02); GFR AFRICAN AMERICAN 71 ML/MIN (>=60); GFR NON AFRICAN AMERICAN 62 ML/MIN (>=60); GLUCOSE, SERUM 143 MG/DL (60-99)
[2016-07-16 04:11] LABS: BASOPHILS 0 %; EOSINOPHILS 0 %; HEMOGLOBIN 13.3 g/dL (12.0-16.0); IMMATURE GRANULOCYTES 0.2 %; IMMATURE GRANULOCYTES ABSOLUTE 0.01 10/3/uL (0.0-0.11); LYMPHOCYTES 6.6 %; LYMPHOCYTES ABSOLUTE 0.44 10/3/uL (0.67-4.30); MEAN CORPUS HGB CONC 30.9 g/dL (32.0-36.0); MEAN CORPUSCULAR HEMOGLOB 27.4 pg (26.0-34.0); MEAN PLATELET VOLUME 9.6 fL (9.2-13.0); MONOCYTES 6.2 %; MONOCYTES ABSOLUTE 0.41 10/3/uL (0.21-1.20); PLATELET COUNT 194 10/3/uL (150-400); RBC DISTRIBUTION WIDTH 14.3 % (12.0-16.0); RED CELL COUNT 4.86 10/6/uL (4.0-5.6); WHITE BLOOD CELLS 6.7 10/3/uL (4.5-10.5)
[2016-07-16 04:12] LABS: HEMATOCRIT 43.1 % (36.0-48.0); MANUAL DIFF NO %; MEAN CORPUSCULAR VOLUME 88.7 fL (80-100)
[2016-07-16 04:26] LABS: CALCIUM, SERUM 8.5 MG/DL (8.5-10.4); CHLORIDE, SERUM 89 MMOL/L (96-112); GFR AFRICAN AMERICAN 80 ML/MIN (>=60); GFR NON AFRICAN AMERICAN 69 ML/MIN (>=60); GLUCOSE, SERUM 118 MG/DL (60-99); POTASSIUM, SERUM 3.8 MMOL/L (3.5-5.3); SODIUM, SERUM 138 MMOL/L (135-148)
[2016-07-16 04:27] LABS: BUN (BLOOD UREA NITROGEN) 32 MG/DL (6-23); CO2 (CARBON DIOXIDE) 44 MMOL/L (24-34); PARTIAL THROMBO TIME 62.5 SEC (22.5-37.2)
[2016-07-16 14:21] LABS: ALLENS TEST Pos; BE (BASE EXCESS) 13.1 MEQ/L (0 +/- 2.5); CARBOXYHEMOGLOBIN 1.1 % (0-3); DEVICE NC; HEMOBLOGIN CONTENT 15.3 G/DL (12-16); INSTRUMENT SERIAL # 35151; METHEMOGLOBIN 0.4 % (0-3); O2 CONTENT 19.3 VOL% (18-24); OPERATOR ID 13715; PCO2 (CO2 TENSION) 53 MMHG (35-45); PO2 (O2 TENSION) 57 MMHG (79-93); SAMPLE Arterial; pH 7.48 (7.37-7.43)
[2016-07-17 01:53] LABS: BASOPHILS 0.1 %; BASOPHILS ABSOLUTE 0.01 10/3/uL (0.0-0.16); EOSINOPHILS 0.1 %; EOSINOPHILS ABSOLUTE 0.01 10/3/uL (0.0-0.53); HEMATOCRIT 42.9 % (36.0-48.0); HEMOGLOBIN 13.4 g/dL (12.0-16.0); IMMATURE GRANULOCYTES 0.4 %; IMMATURE GRANULOCYTES ABSOLUTE 0.04 10/3/uL (0.0-0.11); LYMPHOCYTES 7.1 %; LYMPHOCYTES ABSOLUTE 0.67 10/3/uL (0.67-4.30); MEAN CORPUS HGB CONC 31.2 g/dL (32.0-36.0); MEAN CORPUSCULAR HEMOGLOB 27.4 pg (26.0-34.0); MEAN CORPUSCULAR VOLUME 87.7 fL (80-100); MEAN PLATELET VOLUME 9.5 fL (9.2-13.0); MONOCYTES ABSOLUTE 0.66 10/3/uL (0.21-1.20); NEUTROPHILS 85.3 %; NEUTROPHILS ABSOLUTE 8.08 10/3/uL (2.02-8.40); PLATELET COUNT 204 10/3/uL (150-400); RBC DISTRIBUTION WIDTH 14.2 % (12.0-16.0); RED CELL COUNT 4.89 10/6/uL (4.0-5.6)
[2016-07-17 01:54] LABS: MANUAL DIFF NO %; WHITE BLOOD CELLS 9.5 10/3/uL (4.5-10.5)
[2016-07-17 02:05] LABS: ALBUMIN 3.1 G/DL (3.5-5.0); BUN (BLOOD UREA NITROGEN) 32 MG/DL (6-23); CALCIUM, SERUM 8.4 MG/DL (8.5-10.4); CHLORIDE, SERUM 87 MMOL/L (96-112); CREATININE 0.98 MG/DL (0.55-1.02); GFR AFRICAN AMERICAN 72 ML/MIN (>=60); GFR NON AFRICAN AMERICAN 62 ML/MIN (>=60); POTASSIUM, SERUM 3.6 MMOL/L (3.5-5.3); SODIUM, SERUM 136 MMOL/L (135-148)
[2016-07-17 02:10] LABS: CO2 (CARBON DIOXIDE) 44 MMOL/L (24-34); GLUCOSE, SERUM 145 MG/DL (60-99); PHOSPHORUS, SERUM 2.8 MG/DL (2.5-4.5)
[2016-07-18 04:01] LABS: BASOPHILS 0.1 %; BASOPHILS ABSOLUTE 0.01 10/3/uL (0.0-0.16); EOSINOPHILS 0.6 %; EOSINOPHILS ABSOLUTE 0.06 10/3/uL (0.0-0.53); HEMATOCRIT 44.4 % (36.0-48.0); HEMOGLOBIN 13.9 g/dL (12.0-16.0); IMMATURE GRANULOCYTES 0.7 %; IMMATURE GRANULOCYTES ABSOLUTE 0.07 10/3/uL (0.0-0.11); LYMPHOCYTES 16.2 %; LYMPHOCYTES ABSOLUTE 1.53 10/3/uL (0.67-4.30); MEAN CORPUS HGB CONC 31.3 g/dL (32.0-36.0); MEAN CORPUSCULAR HEMOGLOB 27.5 pg (26.0-34.0); MEAN CORPUSCULAR VOLUME 87.7 fL (80-100); MEAN PLATELET VOLUME 9.8 fL (9.2-13.0); MONOCYTES 6.7 %; MONOCYTES ABSOLUTE 0.63 10/3/uL (0.21-1.20); NEUTROPHILS 75.7 %; NEUTROPHILS ABSOLUTE 7.17 10/3/uL (2.02-8.40); PLATELET COUNT 173 10/3/uL (150-400); RBC DISTRIBUTION WIDTH 14.6 % (12.0-16.0); RED CELL COUNT 5.06 10/6/uL (4.0-5.6); WHITE BLOOD CELLS 9.5 10/3/uL (4.5-10.5)
[2016-07-18 04:06] LABS: MANUAL DIFF NO %; PARTIAL THROMBO TIME 66.5 SEC (22.5-37.2)
[2016-07-18 04:15] LABS: ALBUMIN 2.9 G/DL (3.5-5.0); BUN (BLOOD UREA NITROGEN) 29 MG/DL (6-23); CALCIUM, SERUM 8.8 MG/DL (8.5-10.4); CHLORIDE, SERUM 89 MMOL/L (96-112); CREATININE 0.74 MG/DL (0.55-1.02); GFR AFRICAN AMERICAN 101 ML/MIN (>=60); GFR NON AFRICAN AMERICAN 87 ML/MIN (>=60); GLUCOSE, SERUM 127 MG/DL (60-99); POTASSIUM, SERUM 3.4 MMOL/L (3.5-5.3); SODIUM, SERUM 138 MMOL/L (135-148)
[2016-07-18 04:16] LABS: CO2 (CARBON DIOXIDE) 42 MMOL/L (24-34)
[2016-07-19 04:20] LABS: BASOPHILS 0.1 %; BASOPHILS ABSOLUTE 0.01 10/3/uL (0.0-0.16); EOSINOPHILS 1.6 %; EOSINOPHILS ABSOLUTE 0.17 10/3/uL (0.0-0.53); HEMATOCRIT 44.3 % (36.0-48.0); HEMOGLOBIN 13.6 g/dL (12.0-16.0); IMMATURE GRANULOCYTES 0.8 %; IMMATURE GRANULOCYTES ABSOLUTE 0.09 10/3/uL (0.0-0.11); LYMPHOCYTES 15.1 %; LYMPHOCYTES ABSOLUTE 1.61 10/3/uL (0.67-4.30); MEAN CORPUS HGB CONC 30.7 g/dL (32.0-36.0); MEAN CORPUSCULAR HEMOGLOB 27.1 pg (26.0-34.0); MEAN CORPUSCULAR VOLUME 88.2 fL (80-100); MONOCYTES 7.8 %; MONOCYTES ABSOLUTE 0.83 10/3/uL (0.21-1.20); NEUTROPHILS 74.6 %; NEUTROPHILS ABSOLUTE 7.92 10/3/uL (2.02-8.40); PLATELET COUNT 187 10/3/uL (150-400); RBC DISTRIBUTION WIDTH 14.6 % (12.0-16.0); RED CELL COUNT 5.02 10/6/uL (4.0-5.6); WHITE BLOOD CELLS 10.6 10/3/uL (4.5-10.5)
[2016-07-19 04:29] LABS: MANUAL DIFF NO %
[2016-07-19 04:31] LABS: ALBUMIN 2.7 G/DL (3.5-5.0); BUN (BLOOD UREA NITROGEN) 27 MG/DL (6-23); CALCIUM, SERUM 8.6 MG/DL (8.5-10.4); CHLORIDE, SERUM 92 MMOL/L (96-112); CREATININE 0.74 MG/DL (0.55-1.02); GFR AFRICAN AMERICAN 101 ML/MIN (>=60); GFR NON AFRICAN AMERICAN 87 ML/MIN (>=60); GLUCOSE, SERUM 113 MG/DL (60-99); PHOSPHORUS, SERUM 3.9 MG/DL (2.5-4.5); POTASSIUM, SERUM 3.2 MMOL/L (3.5-5.3); SODIUM, SERUM 140 MMOL/L (135-148)
[2016-07-19 04:32] LABS: CO2 (CARBON DIOXIDE) 42 MMOL/L (24-34)
[2016-07-20 02:26] LABS: BASOPHILS 0.1 %; BASOPHILS ABSOLUTE 0.01 10/3/uL (0.0-0.16); HEMATOCRIT 43.9 % (36.0-48.0); HEMOGLOBIN 13.8 g/dL (12.0-16.0); IMMATURE GRANULOCYTES 0.8 %; IMMATURE GRANULOCYTES ABSOLUTE 0.08 10/3/uL (0.0-0.11); LYMPHOCYTES 18.1 %; LYMPHOCYTES ABSOLUTE 1.78 10/3/uL (0.67-4.30); MEAN CORPUS HGB CONC 31.4 g/dL (32.0-36.0); MEAN CORPUSCULAR HEMOGLOB 27.4 pg (26.0-34.0); MEAN CORPUSCULAR VOLUME 87.3 fL (80-100); MEAN PLATELET VOLUME 9.8 fL (9.2-13.0); MONOCYTES ABSOLUTE 0.78 10/3/uL (0.21-1.20); NEUTROPHILS ABSOLUTE 7.06 10/3/uL (2.02-8.40); PLATELET COUNT 180 10/3/uL (150-400); RBC DISTRIBUTION WIDTH 14.7 % (12.0-16.0); RED CELL COUNT 5.03 10/6/uL (4.0-5.6); WHITE BLOOD CELLS 9.8 10/3/uL (4.5-10.5)
[2016-07-20 02:28] LABS: MANUAL DIFF NO %
[2016-07-20 02:32] LABS: INTERNATIONAL NORMAL RATI 1.1 UNITS (-); PROTIME (NOT ORD) 14.4 SEC (12.0-14.5)
[2016-07-20 02:50] LABS: % IRON SAT 23 % (20-50); BUN (BLOOD UREA NITROGEN) 27 MG/DL (6-23); CALCIUM, SERUM 8.7 MG/DL (8.5-10.4); CHLORIDE, SERUM 94 MMOL/L (96-112); CREATININE 0.91 MG/DL (0.55-1.02); DIRECT BILIRUBIN 0.2 MG/DL (0.0-0.4); GFR AFRICAN AMERICAN 79 ML/MIN (>=60); GFR NON AFRICAN AMERICAN 68 ML/MIN (>=60); GLOBULIN 2.9 G/DL (2.5-4.1); GLUCOSE, SERUM 131 MG/DL (60-99); INDIRECT BILIRUBIN(NOT ORDER) 0.7 MG/DL (0.1-0.9); IRON BINDING CAPACITY 326 MCG/DL (225-410); IRON, SERUM 76 MCG/DL (35-150); POTASSIUM, SERUM 3.7 MMOL/L (3.5-5.3); SGOT(AST) 16 U/L (5-40); SGPT(ALT) 13 U/L (5-65); SODIUM, SERUM 141 MMOL/L (135-148); TOTAL BILIRUBIN 0.9 MG/DL (0-1.2); TOTAL PROTEIN 5.9 G/DL (6.0-8.5)
[2016-07-20 02:51] LABS: ALKALINE PHOSPHATASE 53 U/L (45-117); CO2 (CARBON DIOXIDE) 37 MMOL/L (24-34)
[2016-07-20 14:53] LABS: BE (BASE EXCESS) 0.5 MEQ/L (0 +/- 2.5); CARBOXYHEMOGLOBIN 0.7 % (0-3); HCO3 (ACTUAL BICARBONATE) 24.4 MEQ/L (23-27); HEMOBLOGIN CONTENT 13.1 G/DL (12-16); INSTRUMENT SERIAL # 11843; METHEMOGLOBIN 0.5 % (0-3); O2 CONTENT 18.6 VOL% (18-24); PCO2 (CO2 TENSION) 37 MMHG (35-45); PO2 (O2 TENSION) 245 MMHG (79-93); pH 7.44 (7.37-7.43)
[2016-07-20 14:54] LABS: MODE SIMV; OPERATOR ID 35188; SAMPLE Arterial; TIDAL VOLUME 700 ML
[2016-07-20 15:26] LABS: HEMATOCRIT 37.9 % (36.0-48.0); PLATELET COUNT 87 10/3/uL (150-400)
[2016-07-20 15:28] LABS: INTERNATIONAL NORMAL RATI 1.6 UNITS (-); PARTIAL THROMBO TIME 32.6 SEC (22.5-37.2)
[2016-07-20 15:32] LABS: PROTIME (NOT ORD) 19.1 SEC (12.0-14.5)
[2016-07-20 15:57] LABS: BUN (BLOOD UREA NITROGEN) 27 MG/DL (6-23); CALCIUM, SERUM 8.7 MG/DL (8.5-10.4); CHLORIDE, SERUM 104 MMOL/L (96-112); CREATININE 0.85 MG/DL (0.55-1.02); GFR AFRICAN AMERICAN 86 ML/MIN (>=60); GFR NON AFRICAN AMERICAN 74 ML/MIN (>=60); POTASSIUM, SERUM 3.7 MMOL/L (3.5-5.3); SODIUM, SERUM 140 MMOL/L (135-148)
[2016-07-20 15:58] LABS: CO2 (CARBON DIOXIDE) 26 MMOL/L (24-34); GLUCOSE, SERUM 96 MG/DL (60-99)
[2016-07-20 17:17] LABS: FIBRINOGEN 270 MG/DL (230-462)
[2016-07-20 21:02] LABS: HEMATOCRIT 35.5 % (36.0-48.0); HEMOGLOBIN 11.4 g/dL (12.0-16.0)
[2016-07-20 21:14] LABS: CALCIUM, SERUM 8.2 MG/DL (8.5-10.4); CHLORIDE, SERUM 108 MMOL/L (96-112); CO2 (CARBON DIOXIDE) 28 MMOL/L (24-34); CREATININE 0.87 MG/DL (0.55-1.02); GFR AFRICAN AMERICAN 83 ML/MIN (>=60); GFR NON AFRICAN AMERICAN 72 ML/MIN (>=60); POTASSIUM, SERUM 4.3 MMOL/L (3.5-5.3); SODIUM, SERUM 143 MMOL/L (135-148)
[2016-07-20 21:15] LABS: BUN (BLOOD UREA NITROGEN) 35 MG/DL (6-23); GLUCOSE, SERUM 134 MG/DL (60-99)
[2016-07-20 21:23] LABS: BE (BASE EXCESS) -1.7 MEQ/L (0 +/- 2.5); CARBOXYHEMOGLOBIN 0.6 % (0-3); DEVICE NC; HCO3 (ACTUAL BICARBONATE) 24.1 MEQ/L (23-27); HEMOBLOGIN CONTENT 12.4 G/DL (12-16); INSTRUMENT SERIAL # 11843; METHEMOGLOBIN 0.4 % (0-3); O2 CONTENT 16.7 VOL% (18-24); OPERATOR ID 16469; PCO2 (CO2 TENSION) 45 MMHG (35-45); PO2 (O2 TENSION) 97 MMHG (79-93); SAMPLE Arterial; pH 7.35 (7.37-7.43)
[2016-07-21 03:54] LABS: BASOPHILS 0.1 %; BASOPHILS ABSOLUTE 0.01 10/3/uL (0.0-0.16); EOSINOPHILS 0 %; HEMATOCRIT 32.8 % (36.0-48.0); HEMOGLOBIN 10.4 g/dL (12.0-16.0); IMMATURE GRANULOCYTES 0.5 %; IMMATURE GRANULOCYTES ABSOLUTE 0.08 10/3/uL (0.0-0.11); LYMPHOCYTES 2.4 %; LYMPHOCYTES ABSOLUTE 0.38 10/3/uL (0.67-4.30); MEAN CORPUS HGB CONC 31.7 g/dL (32.0-36.0); MEAN CORPUSCULAR HEMOGLOB 27.4 pg (26.0-34.0); MEAN CORPUSCULAR VOLUME 86.3 fL (80-100); MEAN PLATELET VOLUME 10.8 fL (9.2-13.0); MONOCYTES 2.5 %; MONOCYTES ABSOLUTE 0.39 10/3/uL (0.21-1.20); NEUTROPHILS 94.5 %; NEUTROPHILS ABSOLUTE 14.67 10/3/uL (2.02-8.40); PLATELET COUNT 96 10/3/uL (150-400); RBC DISTRIBUTION WIDTH 14.9 % (12.0-16.0)
[2016-07-21 03:55] LABS: MANUAL DIFF NO %; WHITE BLOOD CELLS 15.5 10/3/uL (4.5-10.5)
[2016-07-21 04:04] LABS: ALBUMIN 3.2 G/DL (3.5-5.0); BUN (BLOOD UREA NITROGEN) 32 MG/DL (6-23); CALCIUM, SERUM 7.8 MG/DL (8.5-10.4); CHLORIDE, SERUM 108 MMOL/L (96-112); CO2 (CARBON DIOXIDE) 27 MMOL/L (24-34); CREATININE 0.69 MG/DL (0.55-1.02); GFR AFRICAN AMERICAN 109 ML/MIN (>=60); GFR NON AFRICAN AMERICAN 94 ML/MIN (>=60); PHOSPHORUS, SERUM 4.8 MG/DL (2.5-4.5); POTASSIUM, SERUM 4.5 MMOL/L (3.5-5.3); SODIUM, SERUM 142 MMOL/L (135-148)
[2016-07-21 04:05] LABS: GLUCOSE, SERUM 88 MG/DL (60-99)
[2016-07-21 15:38] LABS: HEMATOCRIT 34.4 % (36.0-48.0); HEMOGLOBIN 10.6 g/dL (12.0-16.0)
[2016-07-21 15:47] LABS: BUN (BLOOD UREA NITROGEN) 32 MG/DL (6-23); CHLORIDE, SERUM 105 MMOL/L (96-112); CO2 (CARBON DIOXIDE) 26 MMOL/L (24-34); CREATININE 0.62 MG/DL (0.55-1.02); GFR AFRICAN AMERICAN 113 ML/MIN (>=60); GFR NON AFRICAN AMERICAN 97 ML/MIN (>=60); POTASSIUM, SERUM 4.7 MMOL/L (3.5-5.3); SODIUM, SERUM 138 MMOL/L (135-148)
[2016-07-21 15:48] LABS: CALCIUM, SERUM 8.8 MG/DL (8.5-10.4); GLUCOSE, SERUM 130 MG/DL (60-99)
[2016-07-22 03:51] LABS: BASOPHILS 0 %; EOSINOPHILS 0.1 %; EOSINOPHILS ABSOLUTE 0.01 10/3/uL (0.0-0.53); HEMATOCRIT 33.1 % (36.0-48.0); HEMOGLOBIN 10.6 g/dL (12.0-16.0); IMMATURE GRANULOCYTES 0.3 %; IMMATURE GRANULOCYTES ABSOLUTE 0.04 10/3/uL (0.0-0.11); LYMPHOCYTES 4.3 %; LYMPHOCYTES ABSOLUTE 0.68 10/3/uL (0.67-4.30); MEAN CORPUSCULAR HEMOGLOB 27.9 pg (26.0-34.0); MEAN CORPUSCULAR VOLUME 87.1 fL (80-100); MEAN PLATELET VOLUME 10.6 fL (9.2-13.0); MONOCYTES ABSOLUTE 0.96 10/3/uL (0.21-1.20); NEUTROPHILS 89.3 %; NEUTROPHILS ABSOLUTE 14.25 10/3/uL (2.02-8.40); PLATELET COUNT 104 10/3/uL (150-400); RBC DISTRIBUTION WIDTH 14.9 % (12.0-16.0); WHITE BLOOD CELLS 15.9 10/3/uL (4.5-10.5)
[2016-07-22 04:04] LABS: CALCIUM, SERUM 8.6 MG/DL (8.5-10.4); CHLORIDE, SERUM 101 MMOL/L (96-112); CREATININE 0.61 MG/DL (0.55-1.02); GFR AFRICAN AMERICAN 113 ML/MIN (>=60); GFR NON AFRICAN AMERICAN 98 ML/MIN (>=60); GLUCOSE, SERUM 128 MG/DL (60-99); MANUAL DIFF NO %; SODIUM, SERUM 136 MMOL/L (135-148)
[2016-07-22 04:12] LABS: BUN (BLOOD UREA NITROGEN) 22 MG/DL (6-23); CO2 (CARBON DIOXIDE) 31 MMOL/L (24-34); POTASSIUM, SERUM 5.6 MMOL/L (3.5-5.3)
[2016-07-22 11:45] LABS: BUN (BLOOD UREA NITROGEN) 20 MG/DL (6-23); CALCIUM, SERUM 8.5 MG/DL (8.5-10.4); CHLORIDE, SERUM 103 MMOL/L (96-112); CO2 (CARBON DIOXIDE) 29 MMOL/L (24-34); CREATININE 0.51 MG/DL (0.55-1.02); GFR AFRICAN AMERICAN 120 ML/MIN (>=60); GFR NON AFRICAN AMERICAN 104 ML/MIN (>=60); GLUCOSE, SERUM 150 MG/DL (60-99); POTASSIUM, SERUM 4.9 MMOL/L (3.5-5.3); SODIUM, SERUM 137 MMOL/L (135-148)
[2016-07-22 17:06] LABS: BASOPHILS 0 %; EOSINOPHILS 0 %; HEMATOCRIT 29.8 % (36.0-48.0); HEMOGLOBIN 9.6 g/dL (12.0-16.0); IMMATURE GRANULOCYTES 0.6 %; IMMATURE GRANULOCYTES ABSOLUTE 0.07 10/3/uL (0.0-0.11); LYMPHOCYTES 3.2 %; MEAN CORPUS HGB CONC 32.2 g/dL (32.0-36.0); MEAN CORPUSCULAR HEMOGLOB 27.9 pg (26.0-34.0); MEAN CORPUSCULAR VOLUME 86.6 fL (80-100); MEAN PLATELET VOLUME 10.5 fL (9.2-13.0); MONOCYTES 3.4 %; MONOCYTES ABSOLUTE 0.43 10/3/uL (0.21-1.20); NEUTROPHILS 92.8 %; NEUTROPHILS ABSOLUTE 11.58 10/3/uL (2.02-8.40); PLATELET COUNT 78 10/3/uL (150-400); RED CELL COUNT 3.44 10/6/uL (4.0-5.6); WHITE BLOOD CELLS 12.5 10/3/uL (4.5-10.5)
[2016-07-22 17:11] LABS: MANUAL DIFF NO %
[2016-07-22 17:20] LABS: BUN (BLOOD UREA NITROGEN) 19 MG/DL (6-23); CALCIUM, SERUM 8.5 MG/DL (8.5-10.4); CHLORIDE, SERUM 103 MMOL/L (96-112); CO2 (CARBON DIOXIDE) 28 MMOL/L (24-34); CREATININE 0.49 MG/DL (0.55-1.02); GFR AFRICAN AMERICAN 122 ML/MIN (>=60); GFR NON AFRICAN AMERICAN 105 ML/MIN (>=60); GLUCOSE, SERUM 150 MG/DL (60-99); POTASSIUM, SERUM 4.8 MMOL/L (3.5-5.3); SODIUM, SERUM 137 MMOL/L (135-148)
[2016-07-22 17:23] LABS: PLATELET ESTIMATE DEC (ADEQUATE)
[2016-07-22 17:24] LABS: RBC MORPHOLOGY NORM (NORMAL)
[2016-07-23 03:39] LABS: BASOPHILS 0 %; EOSINOPHILS 0 %; HEMATOCRIT 30.2 % (36.0-48.0); HEMOGLOBIN 9.5 g/dL (12.0-16.0); IMMATURE GRANULOCYTES 0.6 %; IMMATURE GRANULOCYTES ABSOLUTE 0.06 10/3/uL (0.0-0.11); LYMPHOCYTES 3.6 %; LYMPHOCYTES ABSOLUTE 0.39 10/3/uL (0.67-4.30); MANUAL DIFF NO %; MEAN CORPUS HGB CONC 31.5 g/dL (32.0-36.0); MEAN CORPUSCULAR HEMOGLOB 27.3 pg (26.0-34.0); MEAN CORPUSCULAR VOLUME 86.8 fL (80-100); MEAN PLATELET VOLUME 10.3 fL (9.2-13.0); MONOCYTES ABSOLUTE 0.43 10/3/uL (0.21-1.20); NEUTROPHILS 91.8 %; NEUTROPHILS ABSOLUTE 9.95 10/3/uL (2.02-8.40); PLATELET COUNT 82 10/3/uL (150-400); RBC DISTRIBUTION WIDTH 14.7 % (12.0-16.0); RED CELL COUNT 3.48 10/6/uL (4.0-5.6); WHITE BLOOD CELLS 10.8 10/3/uL (4.5-10.5)
[2016-07-23 03:49] LABS: BUN (BLOOD UREA NITROGEN) 19 MG/DL (6-23); CALCIUM, SERUM 8.2 MG/DL (8.5-10.4); CHLORIDE, SERUM 103 MMOL/L (96-112); CO2 (CARBON DIOXIDE) 30 MMOL/L (24-34); CREATININE 0.37 MG/DL (0.55-1.02); GFR AFRICAN AMERICAN 134 ML/MIN (>=60); GFR NON AFRICAN AMERICAN 115 ML/MIN (>=60); GLUCOSE, SERUM 124 MG/DL (60-99); POTASSIUM, SERUM 4.8 MMOL/L (3.5-5.3); SODIUM, SERUM 139 MMOL/L (135-148)
[2016-07-24 03:46] LABS: BASOPHILS 0 %; EOSINOPHILS 0 %; HEMOGLOBIN 9.9 g/dL (12.0-16.0); IMMATURE GRANULOCYTES 0.7 %; IMMATURE GRANULOCYTES ABSOLUTE 0.06 10/3/uL (0.0-0.11); LYMPHOCYTES 4.2 %; LYMPHOCYTES ABSOLUTE 0.38 10/3/uL (0.67-4.30); MANUAL DIFF NO %; MEAN CORPUS HGB CONC 30.9 g/dL (32.0-36.0); MEAN CORPUSCULAR HEMOGLOB 27.2 pg (26.0-34.0); MEAN CORPUSCULAR VOLUME 87.9 fL (80-100); MEAN PLATELET VOLUME 10.6 fL (9.2-13.0); MONOCYTES 3.7 %; MONOCYTES ABSOLUTE 0.33 10/3/uL (0.21-1.20); NEUTROPHILS 91.4 %; NEUTROPHILS ABSOLUTE 8.23 10/3/uL (2.02-8.40); PLATELET COUNT 102 10/3/uL (150-400); RED CELL COUNT 3.64 10/6/uL (4.0-5.6)
[2016-07-24 03:56] LABS: BUN (BLOOD UREA NITROGEN) 18 MG/DL (6-23); CALCIUM, SERUM 8.1 MG/DL (8.5-10.4); CHLORIDE, SERUM 103 MMOL/L (96-112); CO2 (CARBON DIOXIDE) 34 MMOL/L (24-34); CREATININE 0.43 MG/DL (0.55-1.02); GFR AFRICAN AMERICAN 127 ML/MIN (>=60); GFR NON AFRICAN AMERICAN 110 ML/MIN (>=60); GLUCOSE, SERUM 130 MG/DL (60-99); POTASSIUM, SERUM 4.9 MMOL/L (3.5-5.3); SODIUM, SERUM 139 MMOL/L (135-148)
[2016-07-24 16:08] LABS: INTERNATIONAL NORMAL RATI 1.1 UNITS (-); PARTIAL THROMBO TIME 24.7 SEC (22.5-37.2)
[2016-07-25 03:42] LABS: BASOPHILS 0.1 %; BASOPHILS ABSOLUTE 0.01 10/3/uL (0.0-0.16); EOSINOPHILS 0.1 %; EOSINOPHILS ABSOLUTE 0.01 10/3/uL (0.0-0.53); HEMATOCRIT 33.9 % (36.0-48.0); HEMOGLOBIN 10.6 g/dL (12.0-16.0); IMMATURE GRANULOCYTES 1.5 %; IMMATURE GRANULOCYTES ABSOLUTE 0.15 10/3/uL (0.0-0.11); LYMPHOCYTES 4.8 %; LYMPHOCYTES ABSOLUTE 0.49 10/3/uL (0.67-4.30); MEAN CORPUS HGB CONC 31.3 g/dL (32.0-36.0); MEAN CORPUSCULAR HEMOGLOB 27.3 pg (26.0-34.0); MEAN CORPUSCULAR VOLUME 87.4 fL (80-100); MEAN PLATELET VOLUME 9.8 fL (9.2-13.0); MONOCYTES 5.2 %; MONOCYTES ABSOLUTE 0.53 10/3/uL (0.21-1.20); NEUTROPHILS 88.3 %; NEUTROPHILS ABSOLUTE 8.93 10/3/uL (2.02-8.40); PLATELET COUNT 123 10/3/uL (150-400); RBC DISTRIBUTION WIDTH 15.2 % (12.0-16.0); RED CELL COUNT 3.88 10/6/uL (4.0-5.6); WHITE BLOOD CELLS 10.1 10/3/uL (4.5-10.5)
[2016-07-25 03:44] LABS: INTERNATIONAL NORMAL RATI 1.3 UNITS (-); PROTIME (NOT ORD) 15.6 SEC (12.0-14.5)
[2016-07-25 03:48] LABS: MANUAL DIFF NO %
[2016-07-25 04:08] LABS: BUN (BLOOD UREA NITROGEN) 14 MG/DL (6-23); CALCIUM, SERUM 8.2 MG/DL (8.5-10.4); CHLORIDE, SERUM 101 MMOL/L (96-112); CO2 (CARBON DIOXIDE) 32 MMOL/L (24-34); CREATININE 0.39 MG/DL (0.55-1.02); GFR AFRICAN AMERICAN 131 ML/MIN (>=60); GFR NON AFRICAN AMERICAN 113 ML/MIN (>=60); GLUCOSE, SERUM 176 MG/DL (60-99); POTASSIUM, SERUM 4.3 MMOL/L (3.5-5.3); SODIUM, SERUM 140 MMOL/L (135-148)
[2016-07-26 07:07] LABS: BASOPHILS 0.1 %; BASOPHILS ABSOLUTE 0.01 10/3/uL (0.0-0.16); EOSINOPHILS 0.4 %; EOSINOPHILS ABSOLUTE 0.04 10/3/uL (0.0-0.53); HEMATOCRIT 32.3 % (36.0-48.0); HEMOGLOBIN 10.2 g/dL (12.0-16.0); IMMATURE GRANULOCYTES ABSOLUTE 0.19 10/3/uL (0.0-0.11); LYMPHOCYTES 10.8 %; LYMPHOCYTES ABSOLUTE 1.02 10/3/uL (0.67-4.30); MEAN CORPUS HGB CONC 31.6 g/dL (32.0-36.0); MEAN CORPUSCULAR HEMOGLOB 27.5 pg (26.0-34.0); MEAN CORPUSCULAR VOLUME 87.1 fL (80-100); MEAN PLATELET VOLUME 9.9 fL (9.2-13.0); MONOCYTES 4.8 %; MONOCYTES ABSOLUTE 0.45 10/3/uL (0.21-1.20); NEUTROPHILS 81.9 %; NEUTROPHILS ABSOLUTE 7.74 10/3/uL (2.02-8.40); PLATELET COUNT 132 10/3/uL (150-400); RBC DISTRIBUTION WIDTH 15.3 % (12.0-16.0); RED CELL COUNT 3.71 10/6/uL (4.0-5.6); WHITE BLOOD CELLS 9.5 10/3/uL (4.5-10.5)
[2016-07-26 07:15] LABS: INTERNATIONAL NORMAL RATI 1.4 UNITS (-); PROTIME (NOT ORD) 16.9 SEC (12.0-14.5)
[2016-07-26 07:18] LABS: MANUAL DIFF NO %
[2016-07-26 07:20] LABS: BUN (BLOOD UREA NITROGEN) 15 MG/DL (6-23); CALCIUM, SERUM 8.4 MG/DL (8.5-10.4); CHLORIDE, SERUM 103 MMOL/L (96-112); CO2 (CARBON DIOXIDE) 30 MMOL/L (24-34); CREATININE 0.38 MG/DL (0.55-1.02); GFR AFRICAN AMERICAN 133 ML/MIN (>=60); GFR NON AFRICAN AMERICAN 114 ML/MIN (>=60); GLUCOSE, SERUM 91 MG/DL (60-99); POTASSIUM, SERUM 3.7 MMOL/L (3.5-5.3); SODIUM, SERUM 141 MMOL/L (135-148)
[2016-07-26 07:21] LABS: PARTIAL THROMBO TIME 116.9 SEC (22.5-37.2)
[2016-07-27 04:38] LABS: INTERNATIONAL NORMAL RATI 1.4 UNITS (-); PROTIME (NOT ORD) 17.3 SEC (12.0-14.5)
[2016-07-27] MEDS ORDERED: L40 PO (11:32)
[2016-07-27] MEDS ORDERED: LIPITOR40 PO (11:32)
[2016-07-27] MEDS ORDERED: CORDARONE PO (11:33)
[2016-07-27] MEDS ORDERED: MIRALAX POWDER1 PKT PO (11:33)
[2016-07-27] MEDS ORDERED: LYRICA50 PO (11:34)
[2016-07-27] MEDS ORDERED: COUMADIN4 MG PO (11:34)
[2016-07-27] MEDS ORDERED: DULERA 200 MCG/13 GM INH (11:35)
[2016-07-27] MEDS ORDERED: DUONEB INH (11:35)
[2016-07-27] MEDS ORDERED: P10 PO (11:35)
[2016-07-27] MEDS ORDERED: NORCO1 TA1 PO (11:36)
== END 2016-07-27 17:15 | disposition home or self-care (01) | DRG 216 ==
LOC: SSU1 11:16 → 5NO 07-14 12:19 → SDC/OF 07-20 06:34 → CVICU 07-20 13:20 → 5NO 07-25 13:03
PROVIDERS: Hospitalist; Internal Medicine; Internal Medicine Cardiovascular Disease; Internal Medicine Nephrology; Nurse Practitioner; Nurse Practitioner Family; Thoracic Surgery (Cardiothoracic Vascular Surgery)
PROC: 4A023N8 Measurement of Cardiac Sampling and Pressure, Bilateral, Percutaneous Approach (ICD-10-PCS; principal; 2016-07-14)
PROC: 02UG0JZ Supplement Mitral Valve with Synthetic Substitute, Open Approach (ICD-10-PCS; 2016-07-14)
PROC: B2111ZZ Fluoroscopy of Multiple Coronary Arteries using Low Osmolar Contrast (ICD-10-PCS; 2016-07-14)
PROC: 02570ZK Destruction of Left Atrial Appendage, Open Approach (ICD-10-PCS; 2016-07-14)
PROC: B2151ZZ Fluoroscopy of Left Heart using Low Osmolar Contrast (ICD-10-PCS; 2016-07-14)
PROC: 02580ZZ Destruction of Conduction Mechanism, Open Approach (ICD-10-PCS; 2016-07-20)
PROC: 5A1221Z Performance of Cardiac Output, Continuous (ICD-10-PCS; 2016-07-20)
PROC: B246ZZ4 Ultrasonography of Right and Left Heart, Transesophageal (ICD-10-PCS; 2016-07-20)
PROC: 02Q50ZZ Repair Atrial Septum, Open Approach (ICD-10-PCS; 2016-07-20 07:30)
DX: I34.0 Nonrheumatic mitral (valve) insufficiency (principal); J96.01 Acute respiratory failure with hypoxia; I50.43 Acute on chronic combined systolic (congestive) and diastolic (congestive) heart failure; J90 Pleural effusion, not elsewhere classified; N17.9 Acute kidney failure, unspecified; J44.1 Chronic obstructive pulmonary disease with (acute) exacerbation; Q21.1 Atrial septal defect; I48.1 Persistent atrial fibrillation; I27.2 Other secondary pulmonary hypertension; G47.33 Obstructive sleep apnea (adult) (pediatric); F17.210 Nicotine dependence, cigarettes, uncomplicated; K21.9 Gastro-esophageal reflux disease without esophagitis; K59.00 Constipation, unspecified; Z79.899 Other long term (current) drug therapy; Z82.49 Family history of ischemic heart disease and other diseases of the circulatory system; Z88.0 Allergy status to penicillin; Z88.5 Allergy status to narcotic agent; E87.70 Fluid overload, unspecified; I95.81 Postprocedural hypotension; D69.6 Thrombocytopenia, unspecified; I48.0 Paroxysmal atrial fibrillation
CPT/HCPCS: 31720; 36415; 36600; 71010; 71020; 71250; 76376; 76775; 80048; 80053; 80061; 80069; 81001; 82248; 82330; 82533; 82565; 82803; 82805; 82947; 82962; 83036; 83540; 83550; 83735; 83880; 84132; 84145; 84295; 85014; 85018; 85025; 85049; 85347; 85384; 85610; 85730; 86850; 86900; 86901; 86920; 87641; 88305; 93005; 93308; 93312; 93320; 93321; 93325; 93460; 93880; 94002; 94640; 94660; 94667; 94668; 94762; 94770; 97110-GP; 97116-GP; 97161-GP; 97164-GP; 99152; 99153; A9270-GY; C1751; C1769; C1894; C2618; J0282; J0690; J1644; J1720; J2150; J2250; J2370; J2405; J2720; J2795; J2930; J3010; J3370; J3475; J3480; P9045; P9047; Q9967

== ENCOUNTER 2016-08-01 23:31 | Emergency (ER) | payer BC ==
[~2016-08-01 23:31] MED LIST changes: +ALBUTEROL5 PO; +B-C POWDER PO; +CORDARONE PO; +COUMADIN4 MG PO; +DULERA 200 MCG/13 GM INH; +DUONEB INH; +L40 PO; +LIPITOR40 PO; +LYRICA50 PO; +MIRALAX POWDER1 PKT PO; +NEXIUM20 M1 PO; +NORCO1 TA1 PO
[2016-08-02 01:40] LABS: BASOPHILS 0.1 %; BASOPHILS ABSOLUTE 0.01 10/3/uL (0.0-0.16); EOSINOPHILS 0.4 %; EOSINOPHILS ABSOLUTE 0.03 10/3/uL (0.0-0.53); ER CBC TAT 0 Hrs 05 Mins; HEMOGLOBIN 8.4 g/dL (12.0-16.0); IMMATURE GRANULOCYTES 1.7 %; IMMATURE GRANULOCYTES ABSOLUTE 0.13 10/3/uL (0.0-0.11); LYMPHOCYTES 11.6 %; LYMPHOCYTES ABSOLUTE 0.89 10/3/uL (0.67-4.30); MEAN CORPUS HGB CONC 32.3 g/dL (32.0-36.0); MEAN CORPUSCULAR HEMOGLOB 27.5 pg (26.0-34.0); MEAN PLATELET VOLUME 9.3 fL (9.2-13.0); MONOCYTES 7.7 %; MONOCYTES ABSOLUTE 0.59 10/3/uL (0.21-1.20); NEUTROPHILS 78.5 %; NEUTROPHILS ABSOLUTE 6.01 10/3/uL (2.02-8.40); PLATELET COUNT 173 10/3/uL (150-400); RBC DISTRIBUTION WIDTH 16.5 % (12.0-16.0); RED CELL COUNT 3.06 10/6/uL (4.0-5.6); WHITE BLOOD CELLS 7.7 10/3/uL (4.5-10.5)
[2016-08-02 01:44] LABS: MANUAL DIFF NO %
[2016-08-02 01:49] LABS: INTERNATIONAL NORMAL RATI 2.5 UNITS (-); PARTIAL THROMBO TIME 28.4 SEC (22.5-37.2); PROTIME (NOT ORD) 26.9 SEC (12.0-14.5)
[2016-08-02 01:57] LABS: BUN (BLOOD UREA NITROGEN) 19 MG/DL (6-23); CALCIUM, SERUM 8.3 MG/DL (8.5-10.4); CHLORIDE, SERUM 101 MMOL/L (96-112); CO2 (CARBON DIOXIDE) 33 MMOL/L (24-34); GFR AFRICAN AMERICAN 114 ML/MIN (>=60); GFR NON AFRICAN AMERICAN 98 ML/MIN (>=60); GLUCOSE, SERUM 118 MG/DL (60-99); POTASSIUM, SERUM 3.8 MMOL/L (3.5-5.3); SODIUM, SERUM 139 MMOL/L (135-148)
[2016-08-02 02:01] LABS: CHEST PAIN PROFILE TAT 0 Hrs 26 Mins; TROPONIN I 0.23 NG/ML (<0.05)
[2016-08-02 02:02] LABS: BAND NEUTROPHILS 3 %; ER DIFF TAT 0 Hrs 27 Mins; LYMPHOCYTES 13 %; MONOCYTES 5 %; MONOCYTES ABSOLUTE (CALC) 0.39 10/3/uL (0.21-1.20); NEUTROPHILS ABSOLUTE (CALC) 6.31 10/3/uL (2.02-8.40); PLATELET ESTIMATE ADQ (ADEQUATE); RBC MORPHOLOGY NORM (NORMAL); SEGMENTED NEUTROPHIL (0) 79 %; TOTAL NUCLEATED CELLS 100
== END 2016-08-02 06:25 | disposition home or self-care (01) ==
LOC: ER 23:31
PROVIDERS: Specialist
DX: M79.81 Nontraumatic hematoma of soft tissue (principal); R60.0 Localized edema; J44.9 Chronic obstructive pulmonary disease, unspecified; G47.30 Sleep apnea, unspecified; I48.91 Unspecified atrial fibrillation; K21.9 Gastro-esophageal reflux disease without esophagitis; F17.200 Nicotine dependence, unspecified, uncomplicated; Z98.51 Tubal ligation status; Z88.0 Allergy status to penicillin; I82.411 Acute embolism and thrombosis of right femoral vein; S30.1XXA Contusion of abdominal wall, initial encounter; X58.XXXA Exposure to other specified factors, initial encounter
CPT/HCPCS: 80048; 83735; 84484; 85025; 85610; 85730; 93005; 93926; 93971; 96374; 99284; J2405